=== PATIENT | female | born 1985 | race Caucasian/White ===

== ENCOUNTER 2018-03-10 15:08 | Inpatient (IN) | payer OTHER ==
[~2018-03-10] VITALS: Ht 165.1 cm; Wt 79.8 kg
[~2018-03-10 15:08] MED LIST: IBUPROFEN800 M1 PO; IRON SUPPLEMEN325 MG PO
[2018-03-10 16:22] LABS: ABSOLUTE BASOPHIL COUNT 0 /CUMM (0.0-0.2); ABSOLUTE EOSINOPHIL COUNT 0.1 /CUMM (0.0-0.7); ABSOLUTE LYMPH COUNT 1.5 /CUMM (1.2-3.4); ABSOLUTE MONOCYTE COUNT 0.6 /CUMM (0.10-0.60); BASOPHIL % 0.2 % (0.0-2.0); EOSINOPHIL % 0.7 % (0-5); GRANULOCYTE % 73.4 % (42.2-75.2); HEMATOCRIT 36.5 % (37-47); MEAN CORPUSCULAR HGB 31.6 PG (27.0-31.0); MEAN CORPUSCULAR HGB CONC 34.2 G/DL (33.0-37.0); MEAN CORPUSCULAR VOLUME 92.4 FL (81.0-99.0); MEAN PLATELET VOLUME 8.8 FL (7.4-10.4); PLATELET COUNT 199 /CUMM (130-400); RBC DISTRIBUTION WIDTH 14.4 % (11.5-14.5); RED BLOOD CELL CT 3.95 /CUMM (4.20-5.40); WHITE BLOOD CELL COUNT 8.2 /CUMM (4.8-10.8)
--- NOTE | 2018-03-10 16:34 | History & Physical ---
General Information and HPI MD Statement: I have seen and personally examined UHBER GONSALVES and documented this H&P. The patient is a 32 year old female at 38 weeks and 6 days gestation who presented with a chief complaint of lABOR PAINS + FM - VB, -ROM. 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 EENTM: Denies: blurred vision, double vision, visual changes. Cardiovascular: Denies: chest pain. Respiratory: Denies: cough, short of breath. GI: Denies: diarrhea, nausea, vomiting. Neurological/Psychological: Denies: anxiety, depressed. Exam & Diagnostic Data Last 24 Hrs of Vital Signs/I&O vss Obstetric Exam Wgt Gained During : 21# Pelvimetry: tested to 7# 15oz Dilation (cm): 5 Effacement (%): 90 Station: -2 Membranes: intact Fluid: unknown Fundal Height (cm): 38 Multiple Gestation? No Contractions: Q4 min Infant #1 - FHR Baseline: 130 Category: 1 Estimated Weight: 3500g Presentation: vth Patient for Induction? No Physical Exam General Appearance Alert, Oriented X3, Cooperative, Moderate Distress Cardiovascular Regular Rate Lungs Clear to Auscultation Abdomen Soft Labs Blood Type & Rh: O pos Antibody Screen: neg Hct/Hgb & Platelets #1: 34/11.7/198 Hct/Hgb & Platelets #2: 33.3/11.3/184 Rubella: imm VDRL #1: nr VDRL #2: nr HbsAg: neg HIV #1: nr HIV #2 nr 1 Hr P, 130 Group B Strep: negative Initial Ultrasound: 08/13/17 8w 6d Anatomy Ultrasound: 10/28/17 normal Ultrasound for EFW: 03/06/18 32%tile Genetic Testing: CF neg , cffDNA normal Last 24 Hrs of Labs/Enoc: Laboratory Tests 03/10/18 1600: CBC w Diff NO MAN DIFF REQ, RBC 3.95 L, MCV 92.4, MCH 31.6 H, MCHC 34.2, RDW 14.4, MPV 8.8, Gran % 73.4, Lymphocytes % 18.6 L, Monocytes % 7.1, Eosinophils % 0.7, Basophils % 0.2, Absolute Granulocytes 6.0, Absolute Lymphocytes 1.5, Absolute Monocytes 0.6, Absolute Eosinophils 0.1, Absolute Basophils 0, Urine Color Pending, Urine Clarity Pending, Urine pH Pending, Ur Specific Rector Pending, Urine Protein Pending, Urine Ketones Pending, Urine Nitrite Pending, Urine Bilirubin Pending, Urine Urobilinogen Pending, Ur Leukocyte Esterase Pending, Ur Microscopic SEDIMENT EXAMINED, Urine RBC Pending, Urine Hemoglobin Pending, Urine Glucose Pending Assessment/Plan Assessment/Plan: IUP at term Active labor Gestational DM glucose intolerance As Ranked By This Provider Problem List: 1. Core Measures Venous Thromboembolism VTE Risk Factors / No Mechanical VTE Prophylaxis d/t LowRisk-No Interven Req'd No VTE Pharm Prophylaxis d/t LowRisk-No Interven Req'd Attending MD Review Statement Attending Statement Attending MD Statement: examined this patient, discussed with family, discussed w/nursing
--- NOTE | 2018-03-10 18:28 | Labor & Delivery Summary ---
Delivery Summary Vaginal Delivery: Vaginal: vertex Episiotomy/Lacerations: Type: 1 DEGREE MIDLINE Repair: 3-0 POLYSORB Anesthesia: NESSICAINE 5CC Placenta: Placenta: spontanteous, normal, 3 vessel, nuchal cord (x_) Anesthesia: block Apgars - 1 Min: 9 Apgars - 5 Min: 9 Additional Comments: BABY WAS GRASPING BUNCHED UP CORD AT UNBILICUS
--- NOTE | 2018-03-10 18:31 | PN- OBGYN ---
Surgical Brief Attending Note Brief Attending Note: AFTER BECOMING FULLY PT HAD A BRADYCARDIA AT WHICH TIME o2 GIVEN AROM CLEAR, SCALP ELECTRODE PLACED, CHANGED POSITION AND PUSHED EVENTUALLY hr CAME UP AND PT DELIVERED VAGINALLY.
[2018-03-10 20:29] VITALS: BP 133/78
[2018-03-11 08:13] LABS: ABSOLUTE BASOPHIL COUNT 0 /CUMM (0.0-0.2); ABSOLUTE EOSINOPHIL COUNT 0 /CUMM (0.0-0.7); ABSOLUTE GRANULOCYTE CT 6.8 /CUMM (1.4-6.5); ABSOLUTE LYMPH COUNT 1.6 /CUMM (1.2-3.4); ABSOLUTE MONOCYTE COUNT 0.5 /CUMM (0.10-0.60); BASOPHIL % 0.4 % (0.0-2.0); EOSINOPHIL % 0.2 % (0-5); GRANULOCYTE % 75.9 % (42.2-75.2); HEMATOCRIT 35.2 % (37-47); MEAN CORPUSCULAR HGB 31.2 PG (27.0-31.0); MEAN CORPUSCULAR HGB CONC 33.6 G/DL (33.0-37.0); MEAN CORPUSCULAR VOLUME 92.8 FL (81.0-99.0); MEAN PLATELET VOLUME 8.9 FL (7.4-10.4); PLATELET COUNT 156 /CUMM (130-400); RBC DISTRIBUTION WIDTH 13.9 % (11.5-14.5)
--- NOTE | 2018-03-11 16:08 | PN- OBGYN ---
Surgical Brief Attending Note Brief Attending Note: PT FEELING WELL. AMB / VOID / BRITTNEE PO. PAIN WELL CONTROLLED. +BF- GOING WELL. AFEB, V/SS NAD ABD SOFT NT FF BETH MOD LOCHIA EXT NT NO ED HCT 36-->35 A/P PPD 1 S/P , DOING WELL -ROUTINE PP CARE -ANT D/C HOME LOU W/ F/U IN 2 WKS
== END 2018-03-12 11:40 | DRG 775 ==
LOC: CBCO 15:08 → GNO 15:44
PROVIDERS: Obstetrics & Gynecology
PROC: 0HQ9XZZ Repair Perineum Skin, External Approach (ICD-10-PCS; principal; 2018-03-10)
PROC: 10E0XZZ Delivery of Products of Conception, External Approach (ICD-10-PCS; principal; 2018-03-10)
DX: O70.0 First degree perineal laceration during delivery (principal); O24.429 Gestational diabetes mellitus in childbirth, unspecified control; Z37.0 Single live birth; Z3A.38 38 weeks gestation of pregnancy
CPT/HCPCS: GNOS; 81001; 87086; J7120